=== PATIENT | female | born 1975 | race Caucasian/White ===

== ENCOUNTER 2019-02-11 22:56 | Emergency (ER) | payer OTHER | END 2019-02-12 01:05 | disposition home or self-care (01) | LOC: ER FS 22:56 ==

== ENCOUNTER → 2019-07-10 | Outpatient (CLI) | payer OTHER ==
[~2019-07-10] MED LIST: DICL50TA6 PO
--- NOTE | 2019-07-11 15:46 | Diagnostic Imaging Report ---
INDICATION: Hyperthyroidism. COMPARISON: No prior studies are available for comparison. TECHNIQUE: Patient was administered 200 uCi of I-123 orally and a 4 hour and 24 hour thyroid uptake was performed. In addition, thyroid scan was performed. FINDINGS: 4-hour thyroid uptake is 35%. 24-hour thyroid uptake is 54%. Normal values are 10-30%. Thyroid scan does show some central increased activity, perhaps activity in the isthmus. Each lobe of the thyroid is unremarkable. No definite cold nodule is seen. IMPRESSION: 1. Findings consistent with hyperthyroidism with 24 hour thyroid uptake of 54%. 2. Questionable hot nodule in the midline, perhaps within the isthmus. Thyroid ultrasound is recommended for further evaluation, if not already performed at another institution. Dictated by: Dictated on workstation # [id number]
== END ==
LOC: CARD 10:37
PROVIDERS: ATTEND Otolaryngology Otolaryngology/Facial Plastic Surgery
DX: E05.90 Thyrotoxicosis, unspecified without thyrotoxic crisis or storm (principal); E04.2 Nontoxic multinodular goiter
CPT/HCPCS: 78014

== ENCOUNTER → 2019-09-10 | Outpatient (CLI) | payer OTHER ==
[2019-09-10 11:52] LABS: ALANINE AMINOTRANSFERASE 32 U/L (0-55); ALKALINE PHOSPHATASE 97 U/L (40-136); BILIRUBIN,DIRECT 0.2 MG/DL (0.0-0.3); BILIRUBIN,TOTAL < 0.2 MG/DL (0.1-1.0); TOTAL PROTEIN 7.4 GM/DL (6.4-8.2)
[2019-09-10 15:32] LABS: FREE T4 (FREE THYROXINE) 1.19 NG/DL (0.70-1.48)
== END ==
LOC: LAB FS 10:28
PROVIDERS: ATTEND Student in an Organized Health Care Education/Training Program
DX: E05.00 Thyrotoxicosis with diffuse goiter without thyrotoxic crisis or storm (principal)
CPT/HCPCS: 36415; 80076; 84439; 84443; 84481

== ENCOUNTER → 2019-10-21 | Outpatient (CLI) | payer OTHER ==
[2019-10-21 16:21] LABS: BASOPHILS % (AUTO) 0 % (0-10); EOSINOPHILS % (AUTO) 2 % (0-10); HEMATOCRIT 40 % (35-52); HEMOGLOBIN 13.2 G/DL (11.5-16.0); LYMPHOCYTES % (AUTO) 30 % (12-44); MEAN CORPUSCULAR HEMOGLOBIN 28 PG (25-34); MEAN CORPUSCULAR HGB CONC 33 G/DL (32-36); MEAN CORPUSCULAR VOLUME 84 FL (80-99); MEAN PLATELET VOLUME 9.5 FL (7.4-10.4); MONOCYTES % (AUTO) 6 % (0-12); NEUTROPHILS % (AUTO) 62 % (42-75); PLATELET COUNT 256 10^3/uL (130-400); RED CELL DISTRIBUTION WIDTH 13.4 % (10.0-14.5); WHITE BLOOD COUNT 7.9 10^3/uL (4.3-11.0)
[2019-10-21 16:22] LABS: EOSINOPHILS # (AUTO) 0.1 10^3/uL (0.0-0.3); LYMPHOCYTES # (AUTO) 2.3 X 10^3 (1.0-4.0); MONOCYTES # (AUTO) 0.5 X 10^3 (0.0-1.0); NEUTROPHILS # (AUTO) 4.9 X 10^3 (1.8-7.8)
[2019-10-21 18:09] LABS: CHLORIDE 106 MMOL/L (98-107); POTASSIUM 3.9 MMOL/L (3.6-5.0); SODIUM 140 MMOL/L (135-145)
[2019-10-21 18:10] LABS: ALANINE AMINOTRANSFERASE 19 U/L (0-55); ALBUMIN 3.8 GM/DL (3.2-4.5); ALKALINE PHOSPHATASE 90 U/L (40-136); BILIRUBIN,TOTAL 0.2 MG/DL (0.1-1.0); BUN/CREATININE RATIO 23; CALCIUM 8.7 MG/DL (8.5-10.1); CARBON DIOXIDE 21 MMOL/L (21-32); CREATININE SERUM 0.57 MG/DL (0.60-1.30); GFR ESTIMATED > 60; GLUCOSE 133 MG/DL (70-105); TOTAL PROTEIN 7.2 GM/DL (6.4-8.2)
[2019-10-21 22:33] LABS: FREE T4 (FREE THYROXINE) 0.84 NG/DL (0.70-1.48)
== END ==
LOC: LAB FS 15:22
PROVIDERS: ATTEND Student in an Organized Health Care Education/Training Program
DX: E05.00 Thyrotoxicosis with diffuse goiter without thyrotoxic crisis or storm (principal)
CPT/HCPCS: 36415; 80053; 82306; 83970; 84439; 84443; 84481; 85025

== ENCOUNTER → 2019-11-21 | Outpatient (CLI) | payer OTHER ==
[2019-11-21 13:10] LABS: HEMATOCRIT 41 % (35-52); HEMOGLOBIN 13.8 G/DL (11.5-16.0); MEAN CORPUSCULAR HEMOGLOBIN 28 PG (25-34); MEAN CORPUSCULAR VOLUME 83 FL (80-99); WHITE BLOOD COUNT 10.4 10^3/uL (4.3-11.0)
[2019-11-21 13:11] LABS: BASOPHILS % (AUTO) 0 % (0-10); EOSINOPHILS % (AUTO) 2 % (0-10); LYMPHOCYTES % (AUTO) 22 % (12-44); MEAN CORPUSCULAR HGB CONC 34 G/DL (32-36); MEAN PLATELET VOLUME 9.2 FL (7.4-10.4); MONOCYTES % (AUTO) 6 % (0-12); NEUTROPHILS % (AUTO) 70 % (42-75); PLATELET COUNT 253 10^3/uL (130-400); RED CELL DISTRIBUTION WIDTH 13.2 % (10.0-14.5)
[2019-11-21 13:12] LABS: EOSINOPHILS # (AUTO) 0.2 10^3/uL (0.0-0.3); LYMPHOCYTES # (AUTO) 2.3 X 10^3 (1.0-4.0); MONOCYTES # (AUTO) 0.6 X 10^3 (0.0-1.0); NEUTROPHILS # (AUTO) 7.3 X 10^3 (1.8-7.8)
[2019-11-21 13:41] LABS: CHLORIDE 107 MMOL/L (98-107); POTASSIUM 3.7 MMOL/L (3.6-5.0); SODIUM 140 MMOL/L (135-145)
[2019-11-21 13:42] LABS: CARBON DIOXIDE 21 MMOL/L (21-32)
[2019-11-21 13:44] LABS: ALKALINE PHOSPHATASE 92 U/L (40-136); BILIRUBIN,TOTAL 0.4 MG/DL (0.1-1.0); BUN/CREATININE RATIO 28; CALCIUM 8.9 MG/DL (8.5-10.1); GFR ESTIMATED > 60; GLUCOSE 111 MG/DL (70-105)
[2019-11-21 13:45] LABS: ALANINE AMINOTRANSFERASE 21 U/L (0-55); ALBUMIN 3.8 GM/DL (3.2-4.5); TOTAL PROTEIN 7.4 GM/DL (6.4-8.2)
[2019-11-22 15:25] LABS: FREE T4 (FREE THYROXINE) 1.18 NG/DL (0.70-1.48)
== END ==
LOC: LAB FS 12:36
PROVIDERS: ATTEND Student in an Organized Health Care Education/Training Program
DX: E05.20 Thyrotoxicosis with toxic multinodular goiter without thyrotoxic crisis or storm (principal)
CPT/HCPCS: 36415; 80053; 83970; 84439; 84443; 84481; 85025

== ENCOUNTER → 2019-12-14 | Outpatient (CLI) | payer OTHER | LOC: LAB FS 15:13 | PROVIDERS: ATTEND Family Medicine | DX: E28.2 Polycystic ovarian syndrome (principal) | CPT/HCPCS: 36415; 84403 ==

== ENCOUNTER → 2019-12-14 | Outpatient (CLI) | payer OTHER ==
[2019-12-14 16:19] LABS: BASOPHILS % (AUTO) 1 % (0-10); EOSINOPHILS % (AUTO) 3 % (0-10); HEMATOCRIT 40 % (35-52); HEMOGLOBIN 13.1 G/DL (11.5-16.0); LYMPHOCYTES # (AUTO) 2.5 X 10^3 (1.0-4.0); LYMPHOCYTES % (AUTO) 36 % (12-44); MEAN CORPUSCULAR HEMOGLOBIN 28 PG (25-34); MEAN CORPUSCULAR HGB CONC 33 G/DL (32-36); MEAN CORPUSCULAR VOLUME 84 FL (80-99); MEAN PLATELET VOLUME 9.5 FL (7.4-10.4); MONOCYTES % (AUTO) 6 % (0-12); NEUTROPHILS # (AUTO) 3.7 X 10^3 (1.8-7.8); NEUTROPHILS % (AUTO) 54 % (42-75); PLATELET COUNT 223 10^3/uL (130-400); RED CELL DISTRIBUTION WIDTH 13.6 % (10.0-14.5); WHITE BLOOD COUNT 6.8 10^3/uL (4.3-11.0)
[2019-12-14 16:20] LABS: EOSINOPHILS # (AUTO) 0.2 10^3/uL (0.0-0.3); MONOCYTES # (AUTO) 0.4 X 10^3 (0.0-1.0)
[2019-12-14 16:25] LABS: SODIUM 140 MMOL/L (135-145)
[2019-12-14 16:26] LABS: CARBON DIOXIDE 20 MMOL/L (21-32); CHLORIDE 105 MMOL/L (98-107)
[2019-12-14 16:31] LABS: ALANINE AMINOTRANSFERASE 19 U/L (0-55); ALBUMIN 3.7 GM/DL (3.2-4.5); ALKALINE PHOSPHATASE 109 U/L (40-136); BILIRUBIN,TOTAL 0.2 MG/DL (0.1-1.0); BUN/CREATININE RATIO 25; CALCIUM 8.8 MG/DL (8.5-10.1); CREATININE SERUM 0.51 MG/DL (0.60-1.30); GFR ESTIMATED > 60; GLUCOSE 159 MG/DL (70-105); TOTAL PROTEIN 6.9 GM/DL (6.4-8.2)
[2019-12-15 14:54] LABS: FREE T4 (FREE THYROXINE) 0.96 NG/DL (0.70-1.48)
== END ==
LOC: LAB FS 03:27
PROVIDERS: ATTEND Student in an Organized Health Care Education/Training Program
DX: E05.20 Thyrotoxicosis with toxic multinodular goiter without thyrotoxic crisis or storm (principal); E55.9 Vitamin D deficiency, unspecified
CPT/HCPCS: 36415; 80053; 82306; 83970; 84439; 84443; 84481; 85025

== ENCOUNTER → 2019-12-17 | Outpatient (CLI) | payer OTHER | LOC: LAB FS 11:10 | PROVIDERS: ATTEND Family Medicine | DX: E28.2 Polycystic ovarian syndrome (principal) | CPT/HCPCS: 36415; 83525 ==

== ENCOUNTER → 2020-01-15 | Outpatient (CLI) | payer OTHER ==
[2020-01-15 09:36] LABS: ALANINE AMINOTRANSFERASE 21 U/L (0-55); ALKALINE PHOSPHATASE 95 U/L (40-136); BILIRUBIN,DIRECT < 0.2 MG/DL (0.0-0.3); BILIRUBIN,INDIRECT 0.1 MG/DL; BILIRUBIN,TOTAL 0.3 MG/DL (0.1-1.0)
== END ==
LOC: LAB FS 08:31
DX: E05.00 Thyrotoxicosis with diffuse goiter without thyrotoxic crisis or storm (principal)
CPT/HCPCS: 36415; 80076; 84439; 84443; 84481

== ENCOUNTER → 2020-05-16 | Outpatient (CLI) | payer OTHER ==
[2020-05-16 11:53] LABS: ALANINE AMINOTRANSFERASE 11 U/L (0-55); ALBUMIN 3.6 GM/DL (3.2-4.5); ALKALINE PHOSPHATASE 87 U/L (40-136); BILIRUBIN,TOTAL 0.2 MG/DL (0.1-1.0); BUN/CREATININE RATIO 20; CALCIUM 7.5 MG/DL (8.5-10.1); CARBON DIOXIDE 23 MMOL/L (21-32); CHLORIDE 98 MMOL/L (98-107); CREATININE SERUM 0.59 MG/DL (0.60-1.30); GFR ESTIMATED > 60; GLUCOSE 99 MG/DL (70-105); POTASSIUM 3.5 MMOL/L (3.6-5.0); SODIUM 137 MMOL/L (135-145)
== END ==
LOC: LAB FS 10:47
PROVIDERS: ATTEND Surgery
DX: E05.20 Thyrotoxicosis with toxic multinodular goiter without thyrotoxic crisis or storm (principal)
CPT/HCPCS: 36415; 80053; 83970